=== PATIENT | male | born 1965 | race Caucasian/White ===

== ENCOUNTER 2024-04-06 06:57 | Day surgery (SDC) | payer BC ==
[~2024-04-06 06:57] MED LIST: Sodium Chloride 0.9% 10 ML Syringe FLUSH PRN; Sodium Chloride 0.9% 10 ML Syringe FLUSH SCH
[2024-04-06] MEDS: Lactated Ringers 1,000 ML IV SCH (07:30)
[2024-04-06] MEDS ORDERED: Propofol 200 MG/20 ML SDV ONE ×2 (07:38→08:07)
[2024-04-06] MEDS ORDERED: Lidocaine 1% 4 ML ONE (07:38)
[2024-04-06] MEDS ORDERED: Midazolam 1 MG/ML 2 ML SDV ONE (07:39)
== END 2024-04-06 08:50 | disposition home or self-care (01) ==
LOC: JD.SDS 06:57
PROVIDERS: ATTEND Surgery
DX: Z12.11 Encounter for screening for malignant neoplasm of colon (principal); R19.5 Other fecal abnormalities; D12.3 Benign neoplasm of transverse colon; D12.5 Benign neoplasm of sigmoid colon; K57.30 Diverticulosis of large intestine without perforation or abscess without bleeding; K64.4 Residual hemorrhoidal skin tags; E78.5 Hyperlipidemia, unspecified; N40.0 Benign prostatic hyperplasia without lower urinary tract symptoms; E66.01 Morbid (severe) obesity due to excess calories; G47.33 Obstructive sleep apnea (adult) (pediatric); Z87.891 Personal history of nicotine dependence; Z79.899 Other long term (current) drug therapy
CPT/HCPCS: 45385; J2250; J2704; J7120; 00811; J3490